=== PATIENT | male | born 1970 | race American Indian/Alaskan Native ===

== ENCOUNTER 2017-05-30 18:17 | Emergency (ER) | payer OTHER ==
[2017-05-30 18:32] VITALS: RESP 16; TEMP 98; O2SAT 98; BMI 33.5
--- NOTE | 2017-05-30 18:53 | ED PDOC ---
Arrival/HPI - General Chief Complaint: GI Problem Time Seen by Provider: 05/30/17 18:40 Historian: Patient - History of Present Illness Narrative History of Present Illness (Text): 05/30/17 18:37 46 year old male, whose past medical history includes heroin IV drug use and polysubstance abuse, brought in by [facility] for heroin withdrawal. Patient states feeling shaky and has goosebumps. Also experiencing nauseas and rhinorrhea. Symptoms noted by patient as withdrawal symptoms. Patient denies any vomiting or any other complaints at this time. No PMD Past Medical History - Provider Review Nursing Documentation Reviewed: Yes - Past Medical History Past Medical History: No Previous - Cardiac Hx Cardiac Disorders: No - Pulmonary Hx Asthma: Yes - Neurological Hx Neurological Disorder: No - HEENT Hx HEENT Disorder: No - Renal Hx Renal Disorder: No - Endocrine/Metabolic Hx Endocrine Disorders: No - Hematological/Oncological Hx Blood Disorders: No - Integumentary Hx Dermatological Disorder: No - Musculoskeletal/Rheumatological Hx Falls: No - Gastrointestinal Hx Gastrointestinal Disorders: No - Genitourinary/Gynecological Hx Genitourinary Disorders: No - Psychiatric Hx Depression: No Hx Substance Use: Yes (last use 05/29/17) - Past Surgical History Past Surgical History: No Previous - Surgical History Other/Comment: RT arm - Anesthesia Hx Anesthesia: Yes Hx Anesthesia Reactions: No - Suicidal Assessment Feels Threatened In Home Enviroment: No Family/Social History - Physician Review Nursing Documentation Reviewed: Yes Family/Social History: No Known Family HX Smoking Status: Smoker Currrent Status Unknown Hx Alcohol Use: No Hx Substance Use: Yes (last use 05/29/17) Substance used: heroin Hx Substance Use Treatment: No Allergies/Home Meds Allergies/Adverse Reactions: Allergies No Known Allergies Allergy (Verified 05/30/17 18:27) Home Medications: Home Meds Medication Instructions Recorded Confirmed Albuterol 0.083% [Albuterol 3 ml IH Q6 PRN 03/30/17 05/30/17 Sulfate 3 Ml] Review of Systems - Physician Review All systems were reviewed & negative as marked: Yes - Review of Systems Constitutional: Other (patient states feeling shaky and has goosebumps.) ENT: Rhinorrhea Gastrointestinal: Nausea. absent: Vomiting Physical Exam Vital Signs Reviewed: Yes Vital Signs Temp Pulse Resp BP Pulse Ox 05/30/17 19:04 78 156/89 H 05/30/17 18:29 98.0 F 75 16 143/89 98 Temperature: Afebrile Blood Pressure: Normal Pulse: Regular Respiratory Rate: Normal Appearance: Positive for: Well-Appearing Pain Distress: None Mental Status: Positive for: Alert and Oriented X 3 - Systems Exam Head: Present: Atraumatic, Normocephalic Pupils: Present: PERRL Extroacular Muscles: Present: EOMI Conjunctiva: Present: Normal Mouth: Present: Moist Mucous Membranes Neck: Present: Normal Range of Motion Respiratory/Chest: Present: Clear to Auscultation, Good Air Exchange. No: Respiratory Distress, Accessory Muscle Use Cardiovascular: Present: Regular Rate and Rhythm, Normal S1, S2. No: Murmurs Abdomen: Present: Normal Bowel Sounds. No: Tenderness, Distention, Peritoneal Signs Back: Present: Normal Inspection Upper Extremity: Present: Normal Inspection. No: Cyanosis, Edema Lower Extremity: Present: Normal Inspection. No: Edema Neurological: Present: GCS=15, CN II-XII Intact, Speech Normal Skin: Present: Warm, Dry, Normal Color. No: Rashes Psychiatric: Present: Alert, Oriented x 3, Normal Insight, Normal Concentration Medical Decision Making ED Course and Treatment: 05/30/17 18:40 Impression: 46 year old male brought in by [facility], showing stable vital signs and complaining of withdrawal. Patient to be provided with anti-nausea medications and will be discharged back into police custody. Physical examination is unremarkable. Plan: -- cloNIDine -- Zofran -- Reassess and disposition Prior Visits: Notes and results from previous visits were reviewed. Patient was last seen in the emergency department on 04/21/2017 for withdrawal. Patient was medically and psychiatrically cleared for incarceration. Progress Notes: - Medication Orders Current Medication Orders: Discontinued Medications Clonidine HCl (Catapres Tts1 0.1 Mg/24 Hr) 1 patch TD ONCE ONE Stop: 06/06/17 18:41 Last Admin: 05/30/17 19:04 Dose: 1 patch MAR Pulse and Blood Pressure Document 05/30/17 19:04 HP (Rec: 05/30/17 19:04 HP [id number]) Pulse Pulse Rate (60-90) 78 Blood Pressure Blood Pressure (100/60-150/90) 156/89 Ondansetron HCl (Zofran Odt) 8 mg PO STAT STA Stop: 05/30/17 18:42 Last Admin: 05/30/17 18:51 Dose: 8 mg - Scribe Statement The provider has reviewed the documentation as recorded by the Gee Bishop Provider Scribe Attestation: All medical record entries made by the Scribe were at my direction and personally dictated by me. I have reviewed the chart and agree that the record accurately reflects my personal performance of the history, physical exam, medical decision making, and the department course for this patient. I have also personally directed, reviewed, and agree with the discharge instructions and disposition. Disposition/Present on Arrival - Present on Arrival Any Indicators Present on Arrival: No History of DVT/PE: No History of Uncontrolled Diabetes: No Urinary Catheter: No History of Decub. Ulcer: No History Surgical Site Infection Following: None - Disposition Have Diagnosis and Disposition been Completed?: Yes Diagnosis: Heroin withdrawal Disposition: RELEASED IN POLICE CUSTODY Disposition Time: 16:20 Patient Plan: Discharge Condition: FAIR Discharge Instructions (ExitCare): Drug Abuse and Drug Addiction (DC) Print Language: IRANIAN Additional Instructions: Patient is cleared for incarceration, police and judicial proceedings. Referrals: [facility], [Non-Staff] - Follow up with primary Forms: [facility] ([place]izen [place])
[2017-05-30 19:04] VITALS: BP 156/89; PULSE 78
== END 2017-05-30 19:05 ==
LOC: ED 18:17
DX: F11.23 Opioid dependence with withdrawal (principal); Z65.3 Problems related to other legal circumstances

== ENCOUNTER 2018-02-28 07:30 | Emergency (ER) | payer OTHER ==
[2018-02-28 07:30] VITALS: BMI 27.6
[2018-02-28 07:42] VITALS: RESP 17; O2SAT 100
[2018-02-28] MEDS ORDERED: Albuterol 0.083% Inhal Sol (2.5 mg/3 mL) UD INH STA (07:42)
--- NOTE | 2018-02-28 07:49 | ED PDOC ---
Arrival/HPI - General Chief Complaint: GI Problem Time Seen by Provider: 02/28/18 07:36 Historian: Patient - History of Present Illness Narrative History of Present Illness (Text): 02/28/18 07:42 47 year old male, with past medical history of asthma and IV drug abuse, presents to the Emergency department under arrest accompanied by [employer] for evaluation of heroin withdrawal today. Patient reports nausea, vomiting and mild generalized abdominal pain secondary to vomiting since prior to arrival. Patient admits to injecting 20 bags of heroin daily and states his last use was 1 day ago. Patient denies any other associated somatic complaints. Patient denies any fevers, chills, headache, dizziness, chest pain, shortness of breath, dyspnea on exertion, cough, diarrhea, back pain, neck pain, or any other complaints. PMD: NONE Time/Duration: Prior to Arrival Symptom Onset: Gradual Symptom Course: Unchanged Activities at Onset: Light Context: Other (Accompanied by [employer]) Past Medical History - Provider Review Nursing Documentation Reviewed: Yes - Past Medical History Past Medical History: No Previous - Cardiac Hx Cardiac Disorders: No Hx Hypertension: No - Pulmonary Hx Tuberculosis: No - Neurological HX Cerebrovascular Accident: No Hx Seizures: No - HEENT Hx HEENT Disorder: No - Renal Hx Renal Disorder: No - Endocrine/Metabolic Hx Endocrine Disorders: No - Hematological/Oncological Hx Cancer: No - Integumentary Hx Dermatological Disorder: No - Musculoskeletal/Rheumatological Hx Falls: No - Gastrointestinal Hx Gastrointestinal Disorders: No - Genitourinary/Gynecological Hx Sexually Transmitted Diseases: No - Psychiatric Hx Depression: No Hx Substance Use: Yes (last use 05/29/17) - Past Surgical History Past Surgical History: No Previous - Surgical History Other/Comment: RT arm - Anesthesia Hx Anesthesia: Yes Hx Anesthesia Reactions: No Hx Malignant Hyperthermia: No - Suicidal Assessment Feels Threatened In Home Enviroment: No Family/Social History - Physician Review Nursing Documentation Reviewed: Yes Family/Social History: Unknown Family HX Smoking Status: Smoker Currrent Status Unknown Hx Alcohol Use: No Hx Substance Use: Yes (last use 05/29/17) Substance used: heroin Hx Substance Use Treatment: No Allergies/Home Meds Allergies/Adverse Reactions: Allergies No Known Allergies Allergy (Verified 05/30/17 18:27) Home Medications: Home Meds Medication Instructions Recorded Confirmed Albuterol 0.083% [Albuterol 3 ml IH Q6 PRN 03/30/17 05/30/17 Sulfate 3 Ml] Review of Systems - Physician Review All systems were reviewed & negative as marked: Yes - Review of Systems Constitutional: absent: Fevers Respiratory: absent: SOB, Cough Cardiovascular: absent: Chest Pain Gastrointestinal: Abdominal Pain, Nausea, Vomiting. absent: Diarrhea Genitourinary Male: absent: Dysuria, Urinary Output Changes Musculoskeletal: absent: Back Pain, Neck Pain Skin: absent: Rash Neurological: absent: Headache, Dizziness Physical Exam - Physical Exam Narrative Physical Exam (Text): 02/28/18 07:38 Gen: VS reviewed, alert, well developed, well nourished, nontoxic, mild distress. ENT: normal pharynx. Eye: EOMI, PERRL. Neck: no JVD, supple, no adenopathy. CV: regular rate, regular rhythm, no rubs, no murmur, no gallops, S1, S2, pulses equal and strong. Pulm: no distress, mild expiratory wheeze, no rhonchi, breath sounds equal, no rales. Abd: soft, nontender, no guarding, no rebound, no rigidity, normal bowel sounds. Ext: no edema. Skin: good color, no rash, no cyanosis. Psych: responds appropriately to questions, normal affect. Neuro: oriented x 3, CN2-12 intact grossly, motor intact, sensation intact. Vital Signs Reviewed: Yes Vital Signs Temp Pulse Resp BP Pulse Ox 02/28/18 07:41 99.0 F 81 17 125/93 H 100 Temperature: Afebrile Blood Pressure: Normal Pulse: Regular Respiratory Rate: Normal Appearance: Positive for: Well-Appearing, Non-Toxic, Comfortable Pain Distress: None Mental Status: Positive for: Alert and Oriented X 3 Medical Decision Making ED Course and Treatment: 02/28/18 07:40 Impression: 47 year old male presents to the Emergency department for evaluation of heroin withdrawal. Plan: -- Albuterol -- Zofran -- Reassess and disposition Prior Visits: Notes and results from previous visits were reviewed. Progress Notes: 02/28/18 08:49 on re-eval, patient appears comfortable, patient states he feels jittery with withdrawl symptoms, he is no longer nauseous. repeat lung exam clear to ausc after neb tx, no wheezing, good air exchange bilaterally. at this time will give dose of clonidine for mild withdrawal syndrome and patient can be discharge into police custody. - Medication Orders Current Medication Orders: Discontinued Medications Albuterol Sulfate (Albuterol 0.083% Inhal [place]chi (2.5 Mg/3 Ml) Ud) 2.5 mg INH STAT STA Stop: 02/28/18 07:43 Ondansetron HCl (Zofran Tab) 4 mg PO STAT STA Stop: 02/28/18 07:43 - Scribe Statement The provider has reviewed the documentation as recorded by the Scribe Robert Holliday. All medical record entries made by the Scribe were at my direction and perso vladimir dictated by me. I have reviewed the chart and agree that the record accurately reflects my personal performance of the history, physical exam, medical decision making, and the department course for this patient. I have also personally directed, reviewed, and agree with the discharge instructions and disposition. Disposition/Present on Arrival - Present on Arrival Any Indicators Present on Arrival: No History of DVT/PE: No History of Uncontrolled Diabetes: No Urinary Catheter: No History of Decub. Ulcer: No History Surgical Site Infection Following: None - Disposition Have Diagnosis and Disposition been Completed?: Yes Diagnosis: Heroin dependence Disposition: HOME/ ROUTINE Disposition Time: 08:55 Condition: STABLE Additional Instructions: Patient is cleared for discharge and stable for incarceration. Prescriptions: Clonidine HCl [Catapres] 0.1 mg PO Q8H #21 tablet Ondansetron [Zofran] 4 mg PO Q8H #12 tab Forms: [employer] (Spanish)
[2018-02-28 09:24] VITALS: BP 150/99; PULSE 81; TEMP 98.8
== END 2018-02-28 09:22 | disposition home or self-care (01) ==
LOC: ED 07:30
DX: F11.20 Opioid dependence, uncomplicated (principal); Z65.3 Problems related to other legal circumstances